=== PATIENT | male | born 1955 | race Caucasian/White ===

== ENCOUNTER 2024-07-16 09:36 | Outpatient (CLI) | payer MEDICARE, BC, SELFPAY | END 2024-07-16 09:37 | disposition home or self-care (01) | LOC: INJ CL 09:39 | PROVIDERS: PCP Family Medicine; Visit Provider Family Medicine | DX: M54.16 Radiculopathy, lumbar region (principal); M51.369 Other intervertebral disc degeneration, lumbar region without mention of lumbar back pain or lower extremity pain | CPT/HCPCS: 62323; J0702; Q9966 ==

== ENCOUNTER 2025-07-04 13:09 | Emergency (ER) | payer MEDICARE, BC, SELFPAY ==
--- OUTSIDE RECORDS SUMMARY | 2025-07-04 13:11 | XMS_ITS | Clinical Summary ---
Author Organization [facility] Address [address] [place] [id number] Care Team Providers Care Seismograph Operator Helper Name Role Phone Dominic Burger MD Primary Care Provider [phone] Allergies Active Allergy Reactions Criticality Noted Date Comments Penicillins 10/16/2007 paralysis and rigidity Medications celecoxib (CELEBREX) 200 mg capsuleIndication s:Lumbar radiculopathy Take 1 Capsule (200 mg) by mouth 2 times daily if needed for Pain. 60 Capsule 1 05/05/20 25 Active atorvastatin (LIPITOR) 20 mg tabletIndications :Hyperlipidemia, unspecified hyperlipidemia type TAKE ONE TABLET BY MOUTH ONE TIME DAILY AT BEDTIME 90 Tablet 1 06/17/20 25 Active levothyroxine (SYNTHROID) 75 mcg tabletIndications :Other specified hypothyroidism TAKE ONE TABLET BY MOUTH ONE TIME DAILY BEFORE BREAKFAST 90 Tablet 06/17/20 25 Active gabapentin (NEURONTIN) 300 mg capsuleIndication s:Lumbar radiculopathy Take 1 Capsule (300 mg) by mouth at bedtime. 90 Capsule 1 06/17/20 25 Active atorvastatin (LIPITOR) 20 mg tabletIndications :Hyperlipidemia, unspecified hyperlipidemia type Take 1 Tablet (20 mg) by mouth at bedtime. 90 Tablet 3 06/29/20 24 2024 Discontinued levothyroxine (SYNTHROID) 75 mcg tabletIndications :Other specified hypothyroidism Take 1 Tablet (75 mcg) by mouth before breakfast. 90 Tablet 3 06/29/20 24 2024 Discontinued gabapentin (NEURONTIN) 300 mg capsuleIndication s:Lumbar radiculopathy Take 1 Capsule (300 mg) by mouth at bedtime. 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 No chemotherapy or other treatment. Yearly PSAs are done at [facility] and followed by [facility]. Other specified hypothyroidism 10/27/2019 Overview (10/27/2019): This was diagnosis at the [facility] in 06/2019 with TSH of 9 and positive TPO antibodies. Thyroid ultrasound in 2018 showed no nodules. In 06/2019 he was started on Levothyroxine 50 micrograms daily and fatigue and cold intolerance improved. Pure hypercholesterolemia 10/16/2007 Special screening for malignant neoplasm of pros garcia 10/16/2007 Hypertrophy of prostate with out urinary obstruction and other lower urinary tract symptoms (LUTS) 10/16/2007 Encounters Date Type Department Care Team Description 07/01/2025 Travel 06/17/2025 8:20 AM CDT Office Visit [facility] [address] [place] [address] Josiah Tucker MD Musculoskeletal Problem (Follow up back pain) 06/17/2025 Travel 06/16/2025 Refill [facility] [address] [place] [address] Dominic Burger MD Refill Request (Atorvastatin, Levothyroxine) 06/12/2025 Travel from Last 3 Months Immunizations Immunization Administration Dates Next Due AMB Influenza, IIV4 PF (=>6 mos Flulaval,Fluzone Fluarix)(Flu Clinic Only) 07/11/2014 COVID-19 VACCINE SPIKEVAX (M ODERNA 50MCG/0.5ML) 12YO+ PFS 11/03/2024,06/29/2024 COVID-19 vaccine (CirroSecure-Bio NTech 30mcg/0.3mL) PF, MDV 08/13/2021 Influenza Virus, Unspecified 09/06/2013,07/10/20 10,08/03/2008 Influenza, IIV3 (Age >=3 years) 09/06/2013,07/10,08/03/2008 Influenza, IIV4 07/11/2014 Influenza, IIV4 (=>6mos) MDV 06/24/2016 TD, UNSPECIFIED 10/27/1997 Td (Age >=7 Years) 10/27/1997 Tdap 08/13/2021,04/10/2009 Zoster (Shingrix-RZV, recombinant) 01/01/2022, Family History Medical History Relation Name Comments Heart Disease Brother 1 Tamar 6 vessel CABG in 50s Alcoholism Brother 2 Devyn of alcohol ism at 67 Heart Disease Father CABG at 51; CH F Hyperlipidemia Father Other Father of old age at 97. He had CHF but was not felt to cause his Diabetes Mother 60s; of ki dney failure and other diabetes complications at 96 Heart Disease Mother Heart valve re placed Relation Name Status Comments Brother 1 Tamar Alive Brother 2 Devyn Brother 3 Joe Alive Father CHF Mother Sister Marleny Alive Social History Tobacco Use Types Packs/Day Years Used Date Smoking Tobacco: Former Cigarettes 0.3 15 0 09/22/1984 - 09/22/1999 Smokeless Tobacco: Never Tobacco Cessation:Counseling Given: Yes Alcohol Use Standard Drinks/Week Comments Yes 5 (1 standard drink = 0.6 oz pur e alcohol) occasional PHQ-2 Answer Date Recorded PHQ-2 TOTAL SCORE 0 06/29/2024 Social Connections Answer Date Recorded Do you often feel lonely or isolated from those around you? 0 06/29/2024 Alcohol Use Answer Date Recorded How often do you have a drink containing alcohol ? 3 11/03/2024 How many drinks containing a lcohol do you have on a typical day when you are drinking? 0 11/03/2024 How often do you have five or more drinks on one occasion? 1 11/03/2024 Financial Resource Strain Answer Date R ecorded Difficulty of Paying Living Expenses 3 06/29/2024 Difficulty of Paying Living Expenses Not on file 06/29/2024 Food Insecurity Answer Date Recorded Do you worry your food will run out before you are able to buy more? 1 06/29/2024 Transportation Needs Answer Date Record ed Does lack of transportation keep you from medica l appointments? 1 06/29/2024 Does lack of transportation keep you from work, meetings or getting things that you need? 1 06/29/2024 Housing Stability Answer Date Recorded What is your housing situation today? 1 06/29/2024 Utilities Answer Date Recorded Do you have trouble paying f or utilities (for example, heat, electricity, water, phone)? 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 on file Not on tyrone e Not on file Obstetrics History Last Filed Vital Signs Vital Sign Reading Time Taken Comments Blood Pressure 132/76 06/17/2025 8:25 AM CDT Pulse 58 06/17/2025 8:25 AM CDT Temperature 36.6 C (97.9 F) 06/17/2025 8:25 AM CDT Respiratory Rate 12 12/04/2021 10:34 AM CDT Oxygen Saturation 95% 06/17/2025 8:25 AM CDT Inhaled Oxygen Concentration - - Weight 90.1 kg (198 lb 9.6 oz) 06/17/2025 8:25 A M CDT Height 179.5 cm (5' 10.67) 06/17/2025 8:25 AM C DT Body Mass Index 27.96 06/17/2025 8:25 AM CDT Plan of Treatment Upcoming Encounters Date Type Department Care Team (Late st Contact Info) Description 07/05/2025 7:20 AM CDT Office Visit [facility] at [address] [facility] [place] [id number] Josiah Tucker MD [address] [place] [address] 09/05/2025 7:15 AM COLOR RECEIVER Orders Only [facility] [address] [place] [address] Alix Damon 09/06/2025 9:10 AM COLOR RECEIVER Office Visit [facility] [address] [place] [address] Dominic Burger MD [address] [place] [address] Health Maintenance Due Date Last Done Comments Pneumococcal series for age 50+ (1 of 1 - PCV) 2007 AAA screening age 65-74 2022 Influenza Vaccine (#1) 2025 6, 07/11/2014, 07/11/2014, Additional history exists Depression screening for age 12+ 06/29/2025 06/29/2024, 05/07/2023, 08/13/2021, Additional history exists Medicare Wellness for age 65+ 06/30/2025 06/29/2024 BMI (ht and wt on same day) for age 18+ 06/17/2026 06/17/2025, 01/31/2025, 06/29/2024, Additional history exists Lipids for age 45-75 06/29/2029 06/29/2024, 08/07/2023, 04/30/2023, Additional history exists Colonoscopy through age 75 08/05/202908/05 (Completed outside of [facility]), 08/15/2010 (Completed outside of [facility]), 12/15/2007 Tetanus booster 08/13/2031 08/13/2021, 03/23, 10/27/1997, Additional history exists RSV vaccine for adults or (1 - 1-dose 75+ series) 2032 Zoster (shingles) series for age 50+ Completed 01/01/2022, 08/13/2021 Hepatitis C screening for age 18-79 Completed 08/07/2023 COVID-19 vaccine series Completed 11/03/19, 06/29/2024, 07/24/2023, Additional history exists Hepatitis B series for 19+ Aged Out N o longer eligible based on patient's age to complete this topic Procedures Procedure Name Priority Date/Time Associated Diagnosis Comments LIPID PANEL W REFLEX MEASURED LDL Routine 06/29/2024 9:28 AM CDT Hyperlipidemia, unspecified hyperlipidemia type ANTI HCV Routine 08/07/2023 7:04 AM COLOR RECEIVER Need for hepatitis C screening test from Last 3 Months or Most Recently Relevant to Health Maintenance Results * LIPID PANEL W REFLEX MEASURED LDL (06/29/2024 9:28 AM CDT) CHOLESTEROL, TOTAL 155 <200 mg/dL [facility] HDL CHOLESTEROL 44 > OR = 40 mg/dL [facility] TRIGLYCERIDES 136 <150 mg/dL [facility] LDL-CHOLESTEROL 88 mg/dL (calc) [facility] Comment: Reference range: <100 Desirable range <100 mg/dL for primary prevention; <70 mg/dL for patients with CHD or diabetic patients with > or = 2 CHD risk factors. LDL-C is now calculated using the Reji calculation, which is a validated novel method providing better accuracy than the Friedewald equation in the estimation of LDL-C. Charly ORTEGA et al. KATYA. 2013;310(19): 9712-2884 (http://education.Infinite.ly/faq/MKN971) CHOL/HDLC RATIO 3.5 <5.0 (calc) [facility] NON HDL CHOLESTEROL 111 <130 mg/dL (calc) [facility] Comment: For patients with diabetes plus 1 major ASCVD risk factor, treating to a non-HDL-C goal of <100 mg/dL (LDL-C of <70 mg/dL) is considered a therapeutic option. Blood BLOOD SPECIMEN / Unknown 06/29/2024 9:28 AM CDT 06/29/2024 9:30 AM CDT Narrative [facility] - 06/30/2024 12:16 PM CDT FASTING:YES FASTING: YES us Dominic Burger MD CHEMISTRY Final Resu lt [facility] [address] [place] [address], [facility] [address] [place] [address] * ANTI HCV (08/07/2023 7:04 AM COLOR RECEIVER) HEPATITIS C ANTIBODY Non-Reacti ve Non-React karol 08/07/2023 2:33 PM COLOR RECEIVER [facility] Comment:Please note, per www .CDC.gov: If a patient is known to be at high risk of HCV infection, or is symptomatic, and the physician's suspicion of HCV infection is high, HCV RNA testing is often employed and is of diagnostic value, even after an initial negative anti-HCV test result. Blood BLOOD SPECIMEN / Unknown Venipuncture / Unknown 08/07/2023 7:04 AM COLOR RECEIVER 08/07/2023 7:04 AM COLOR RECEIVER us Dominic Burger MD SEND OUTS Final Resu lt [facility] [address] [place] [address], [place] from Last 3 Months or Most Recently Relevant to Health Maintenance Insurance [facility] MEDICARE PB ONLY MEDICARE PART B HB ONLY MEDICARE PART A HB ONLY Care Teams Seismograph Operator Helper Relationship Specialty Start Date End Date Dominic Burger [place] [address] PCP - General 09/29/07
[2025-07-04 13:23] VITALS: BP 164/91; PULSE 65; RESP 16; TEMP 36.5; O2SAT 97; BMI 27.9
--- NOTE | 2025-07-04 14:08 | ED.GENADULT ---
HPI - General Adult General Chief complaint: Unspecified Complaint, Adult Stated complaint: Fish hook R thumb Time Seen by Provider: 07/04/25 13:57 Source: patient Mode of arrival: ambulatory Limitations: no limitations History of Present Illness HPI narrative: 70-year-old male presents today with a fishhook to the right thumb. Tetanus shot is up-to-date. Related Data Home Medications ?Medication ?Instructions ?Recorded ?Confirmed atorvastatin 20 mg tablet 20 mg PO QPM 07/04/25 07/04/25 levothyroxine 75 mcg tablet 75 mcg PO QAM 07/04/25 07/04/25 Previous Rx's ?Medication ?Instructions ?Recorded cefadroxil 500 mg capsule 500 mg PO BID 7 days #14 caps 07/04/25 Allergies Allergy/AdvReac Type Severity Reaction Status Date / Time Penicillins Allergy Unknown Verified 07/04/25 13:27 Review of Systems Status of ROS: Reports: 6 or more systems reviewed and unremarkable except as noted in History and below Exam Narrative: Exam Narrative: Three prong fish hook, 1 hook imbedded into the pad of the thumb. Const: Vital Signs, click to edit/add: Vital Signs - 24 hr 07/04/25 13:23 Temperature 97.7 F Pulse Rate [Pulse Oximeter] 65 Respiratory Rate 16 Blood Pressure [Le ft Upper Arm] 164/91 H Pulse Oximetry 97 Oxygen Delivery Me thod Room Air Course Course ED Course: Area anesthetized with lidocaine, clean, assembler wire group used to cut the fishhook and remainder of the hook pulled out in its entirety. Vital Signs Vital signs: Initial Vital Signs Temperature 97.7 F 07/04/25 13:23 Temperature Source Temporal Artery Scan 07/04/25 13:23 Pulse Rate 65 07/04/25 13:23 Respiratory Rate 16 07/04/25 13:23 Blood Pressure 164/91 H 07/04/25 13:23 Blood Pressure Mean 115 H 07/04/25 13:23 Pulse Oximetry 97 07/04/25 13:23 Oxygen Delivery Method Room Air 07/04/25 13:23 Vital Signs Temperature 97.7 F 07/04/25 13:23 Pulse Rate 65 07/04/25 13:23 Respiratory Rate 16 07/04/25 13:23 Blood Pressure 164/91 H 07/04/25 13:23 Pulse Oximetry 97 07/04/25 13:23 Oxygen Delivery Method Room Air 07/04/25 13:23 Temperature 97.7 F 07/04/25 13:23 Pulse Rate 65 07/04/25 13:23 Respiratory Rate 16 07/04/25 13:23 Blood Pressure 164/91 H 07/04/25 13:23 Pulse Oximetry 97 07/04/25 13:23 Oxygen Delivery Method Room Air 07/04/25 13:23 Medical Decision Making MDM Narrative Medical decision making narrative: Iron Post imbedded in thumb. Pulled out without difficulty. Discharge Plan Discharge Clinical Impression: Fish hook entering through skin Patient Disposition: Home, Self-Care Condition: Improved Additional Instructions: Keep wound clean and dry. If finger tip turns red, start antibiotics. Prescriptions: New cefadroxil 500 mg capsule 500 mg PO BID 7 Days Qty: 14 0RF No Action atorvastatin 20 mg tablet 20 mg PO QPM levothyroxine 75 mcg tablet 75 mcg PO QAM Follow Up/Referrals: Dominic Burger MD [Primary Care Provider, Family Practice] Stand Alone [facility]: [facility] Inst[facility]
--- OUTSIDE RECORDS SUMMARY | 2025-07-04 14:09 | XMS_ITS | Clinical Summary ---
Author Organization [facility] Address [address] [place] [address] Care Team Providers Care Medical Sales Representative Name Role Phone Unavailable Primary Care Provider Unavailabl e Source Comments Patient records contain information from all sites at [facility]. For routine questions regarding patient records, call [phone] during business hours, M-F 8:00 AM - 5:00 PM Central Time. Record requests for emergency care only can be directed to [phone] at any time.[facility] Allergies Active Allergy Reactions Criticality Noted Date Comments Penicillin Other (see comments) 08/05/2017 patient may use cefazolin Medications * This document contains information received from the source organization and may not represent a complete record from that organization. atorvastatin (LIPITOR) 20 mg tablet Take 20 mg by mouth at bedtime. Active celecoxib (CeleBREX) 200 mg capsule Take 200 mg by mouth daily. SHORT TERM Active gabapentin (NEURONTIN) 300 mg capsule Take 300 mg by mouth daily. SHORT TERM Active levothyroxine (SYNTHROID, LEVOTHROID) 75 mcg tablet Take 75 mcg by mouth every morning before breakfast. Active Active Problems Problem Noted Date Diagnosed Date Fatigue 07/19/2019 Elevated Blood Pressure 07/19/2019 Primary Osteoarthritis Hip Bilateral 09/22/2012 Primary Malignant Neoplasm Of Prostate Hypothyroidism Hyperlipidemia Immunizations Immunization Administration Dates Next Due Influenza TIV (IM) 09/06/2013,07/10/2010, 008 Influenza, Injectable, Quadrivalent 06/24/2016 Influenza, Seasonal, Injectable 07/19/20 19(Deferred: Patient Refused),09/06/2013,08/03/2008 Td, (Adult) Unspecified 10/27/1997 Tdap 04/10/2009 influenza vaccine quad (FLUZONE/FLUARIX) (6 months and older)(PF) 07/11/2014 Family History Medical History Relation Name Comments Coronary artery disease Father july bedoya Hyperlipidemia (high cholesterol) Father july bedoya Diabetes Mother Yasmin bedoya Relation Name Status Comments Father july bedoya Mother Yasmin bedoya Social History Tobacco Use Types Packs/Day Years Used Date Smoking Tobacco: Former Cigarettes Q uit: 09/22/1999 Smokeless Tobacco: Never Tobacco Cessation:Counseling Given: Not Answered Alcohol Use Standard Drinks/Week Comments Yes 4 (1 standard drink = 0.6 oz pur e alcohol) [facility] Utilities Answer Date Recorded In the past 12 months has e [employer], gas, oil, or water [employer] threatened to shut off services in your home? No 03/03/2024 Humiliation, Afraid, Rape, and Kick questionnair e Answer Date Recorded Within the last year, have y ou been afraid of your partner or ex-partner? No 11/12/2021 Within the last year, have y ou been humiliated or emotionally abused in other ways by your partner or ex-partner? No Within the last year, have y ou been kicked, hit, slapped, or otherwise physically hurt by your partner or ex-partner? No 11/12/2021 Within the last year, have y ou been raped or forced to have any kind of sexual activity by your partner or ex-partner? No 11/12/2021 Hunger Vital Sign Answer Date Recorded Within the past 12 months, y ou worried that your food would run out before you got the money to buy more. Never true 03/03/20 24 Within the past 12 months, t he food you bought just didn't last and you didn't have money to get more. Never true 03/03/2024 PRAPARE - Transportation Answer Date Re corded In the past 12 months, has l ack of transportation kept you from medical appointments or from getting medications? No 02/20 In the past 12 months, has l ack of transportation kept you from meetings, work, or from getting things needed for daily living? No 03/03/2024 Housing Stability Answer Date Recorded What is your living situation today? I have a [facility] place to live 03/03/2024 Education Answer Date Recorded What is the highest level of school you have completed or the highest degree you have received? Bachelor's degree (e.g., BA, AB, BS) 07/14/2019 Sex and Gender Information Value Date Recorded Sex Assigned at Male 11/12/2021 4:38 PM STRAWHAT BLOCKING OPERATOR Legal Sex Male 2:30 PM STRAWHAT BLOCKING OPERATOR Gender Identity Male 02/23/2018 8:03 AM CDT Sexual Orientation Straight 02/23/2018 8: 03 AM CDT Last Filed Vital Signs Vital Sign Reading Time Taken Comments Blood Pressure 130/77 08/05/2019 9:00 AM STRAWHAT BLOCKING OPERATOR Pulse 66 08/05/2019 9:00 AM STRAWHAT BLOCKING OPERATOR Temperature 36.6 C (97.9 F) 08/05/2019 8:49 AM STRAWHAT BLOCKING OPERATOR Respiratory Rate 15 08/05/2019 9:00 AM STRAWHAT BLOCKING OPERATOR Oxygen Saturation 97% 08/05/2019 9:00 AM STRAWHAT BLOCKING OPERATOR Inhaled Oxygen Concentration - - Weight 91.5 kg (201 lb 11.5 oz) 08/05/2019 7:37 AM STRAWHAT BLOCKING OPERATOR Height 178.4 cm (5' 10.24) 08/05/2019 7:[address] Body Mass Index 28.75 08/05/2019 7:37 AM STRAWHAT BLOCKING OPERATOR Plan of Treatment Health Maintenance Due Date Last Done Comments CT Colonography 1955 Cologuard 1955 Pneumococcal vaccine (50+ years) (1 of 1 - PCV) 2007 Colonoscopy 08/05/2024 08/05/2019, 09/2006 (Performed elsewhere) Colorectal Cancer Surveillance 08/05/2024 Thyroid Stimulating Hormone (TSH) test for thyroid function 08/07/2024 08/07/2023, 04/30/2023, 12/04/2021, Additional history exists Depression Screening (Annual PHQ-2) 09/22/2024 Fall Risk Screen (Annual) 09/22/2024 COVID-19 Vaccine ( season) 2025 11/03/2024, 06/29/2024, 07/24/2023, Additional history exists Influenza Vaccine (#1) 2025 6, 07/11/2014, 09/06/2013, Additional history exists Fasting Glucose for Diabetes Screening 06/29/2027 06/29/2024, 08/07/2023, 12/04/2021, Additional history exists Lipid (Cholesterol) Screening 08/07/2028 08/07/2023, 04/30/2023, 12/04/2021, Additional history exists DTaP,Tdap,and Td Vaccines (3 - Td or Tdap) 08/13/2031 08/13/2021, 04/10/2009, 10/27/1997 Hepatitis C Screening Completed 07/20/2019 Abdominal Aortic Aneurysm (AAA) Screen Completed 07/23/2019 Zoster Vaccines Completed 01/01/2022, 08/13/2021 IPV Vaccines Aged Out No longer eligi ble based on patient's age to complete this topic Medical Devices Implanted Type Area Blue Crabber Device Identifier Shelf Expiration Date Model / Serial / Lot Conversions - Default Historical Implant Device Implanted:2016 (Quantity not on file) Hardware e.g. pins/screws /rods Right: Wrist Description:Body Location - Wrist R. Device Status Text - Hardware. Screw Osteolock 26mm - Stephens [id number] Implanted:Qty: 1 on 08/21/2017 Hardware e.g. pins/screws /rods Irish Description:Device Manufactu rer - Geary Vanesa.. Device Status Text - [id number]. Screw Osteolock 20mm - Stephens [id number] Implanted:Qty: 1 on 08/21/2017 Hardware e.g. pins/screws /rods Geary Description:Device Manufactu rer - Geary Vanesa.. Device Status Text - [id number]. How- Shell Acetab Tri Hemispherical 56mm - Stephens [id number] Implanted:Qty: 1 on 08/21/2017 Hip Implant Other/Legacy - See Implant Description Geary Description:Device Manufactu rer - Irish Vanesa.. Body Location - Other. Left. Device Status Text - [id number] [id number]. Biolox-Delta Head C-Taper 36mm -5 - Stephens [id number] Implanted:Qty: 1 on 08/21/2017 Hip Implant Other/Legacy - See Implant Description Irish Description:Device Manufactu rer - Irish Vanesa.. Body Location - Other. Left. Device Status Text - [id number] [id number]. Ost Insert Trid X 3 Ply 0 Deg 36mm - Stephens [id number] Implanted:Qty: 1 on 08/21/2017 Hip Implant Other/Legacy - See Implant Description Irish Description:Device Manufactu rer - Geary Vanesa.. Body Location - Other. Left. Device Status Text - [id number] [id number]. Hip Stem Secur-Fit Max 10 35 - Stephens [id number] Implanted:Qty: 1 on 08/21/2017 Hip Implant Other/Legacy - See Implant Description Irish Description:Device Manufactu rer - Irish Vanesa.. Body Location - Other. Left. Device Status Text - [id number] [id number]. How- Shell Acetab Tri Hemispherical 56mm - Stephens [id number] Implanted:Qty: 1 on 10/28/2017 Hip Implant Other/Legacy - See Implant Description Geary Description:Device Manufactu rer - Geary Vanesa.. Body Location - Other. Right. Device Status Text - [id number] [id number]. Biolox-Delta Head C-Taper 36mm 0 - Stephens [id number] Implanted:Qty: 1 on 10/28/2017 Hip Implant Other/Legacy - See Implant Description Irish Description:Device Manufactu rer - Geary Vanesa.. Body Location - Other. Right. Device Status Text - [id number] [id number]. Hip Stem Secur-Fit Max 10 35 - Stephens [id number] Implanted:Qty: 1 on 10/28/2017 Hip Implant Other/Legacy - See Implant Description Geary Description:Device Manufactu rer - Geary Vanesa.. Body Location - Other. Right. Device Status Text - [id number] [id number]. Ost Insert Trid X 3 Ply 0 Deg 36mm - Stephens [id number] Implanted:Qty: 1 on 10/28/2017 Hip Implant Other/Legacy - See Implant Description Irish Description:Device Manufactu rer - Geary Vanesa.. Body Location - Other. Right. Device Status Text - HIP [id number]. Procedures Procedure Name Priority Date/Time Associated Diagnosis Comments COLONOSCOPY Routine 08/05/2019 7:57 AM STRAWHAT BLOCKING OPERATOR General Medical Examination Adult US AORTA RAD - Routine (most inpatients and all outpatients) 07/23/2019 8:28 AM CDT General Medical Examination Adult COMPREHENSIVE METABOLIC PANEL, S/P Routine 07/20/2019 7:23 AM CDT General Medical Examination Adult HCV AB SCRN W/REFLEX TO HCV PCR, S Routine 07/20/2019 7:23 AM CDT General Medical Examination Adult LIPID PANEL, S Routine 07/20/2019 7:23 AM CDT General Medical Examination Adult THYROID FUNCTION CASCADE, S Routine 07/20/2019 7:23 AM CDT General Medical Examination Adult from Last 3 Months or Most Recently Relevant to Health Maintenance Results * Colonoscopy (08/05/2019 7:57 AM STRAWHAT BLOCKING OPERATOR) Anatomical Region Laterality Modality Other 08/05/2019 7:57 AM STRAWHAT BLOCKING OPERATOR Impressions 08/05/2019 8:59 AM STRAWHAT BLOCKING OPERATOR Post-op Diagnoses: - One 3 mm polyp in the descending colon, removed piecemeal using a cold biopsy forceps. Resected and retrieved. - Two 3 to 5 mm polyps at the recto-sigmoid colon, removed with a cold snare. Resected and retrieved. - The examination was otherwise normal on direct and retroflexion views. Narrative 08/05/2019 8:59 AM STRAWHAT BLOCKING OPERATOR [facility] GI Patient Name: Romeo Bedoya Date of : 1955 Age: 64 Gender: Male Procedure Date: 08/05/2019 Procedure: Colonoscopy Providers: Jorge A Trevino MD, Amilcar Borden MD (Fellow) Referring Provider: Devyn Valle Pre-op Diagnoses: High risk colon cancer surveillance: Personal history of colonic polyps Recommendation: - Await pathology results. - Return to referring physician as previously scheduled. Findings: A 3 mm polyp was found in the descending colon. The polyp was sessile. The polyp was removed with a piecemeal technique using a cold biopsy forceps. Resection and retrieval were complete. Two sessile polyps were found in the recto-sigmoid colon. The polyps were 3 to 5 mm in size. These polyps were removed with a cold snare. Resection and retrieval were complete. The exam was otherwise without abnormality on direct and retroflexion views. Procedural Details: The patient was seen, evaluated, history reviewed, airway and heart-lung exams were performed by licensed provider and were satisfactory for planned level of sedation care. The risks, benefits and alternatives for the procedure and sedation were discussed and informed consent was obtained. A procedural pause was conducted in the presence of assisting personnel to verify the correct patient identity and procedure to be performed. Throughout the procedure, the patient's blood pressure, pulse, and oxygen saturations were monitored continuously. The Colonoscope was introduced under direct vision through the anus and advanced to the cecum, identified by appendiceal orifice and ileocecal valve. The colonoscopy was performed without difficulty. The patient tolerated the procedure well. The quality of the bowel preparation was good. The quality of the bowel preparation was evaluated using the BBPS ([place] Bowel Preparation Scale) with scores of: Right Colon = 3, Transverse Colon = 3 and Left Colon = 3 (entire mucosa seen well with no residual staining, small fragments of stool or opaque liquid). The total BBPS score equals 9. Complications: No immediate complications. Estimated blood loss: Minimal. Sedation: Moderate (conscious) sedation was administered by the endoscopy nurse and supervised by the endoscopist. The patient's oxygen saturation, heart rate, blood pressure and response to care were monitored. Total physician intraservice time was 34 minutes. Attending Participation: I was present and participated during the entire procedure, including non-palomares portions. Jorge A Trevino MD 08/05/2019 8:59:14 AM This report has been signed electronically. Number of Addenda: 0 us Devyn Valle M.D. GI PROCEDURE ORDERABLES F inal Result * US Aorta (07/23/2019 8:28 AM CDT) Anatomical Region Laterality Modality Abdomen, Pelvis, Ultrasound RST LOS, Ultrasound ARZ LOS, Ultrasound FLA LOS N/A Ultrasound 07/23/2019 8:32 AM CDT Impressions 07/23/2019 9:02 AM CDT The abdominal aorta and bilateral common iliac arteries are normal in caliber. Narrative 07/23/2019 9:02 AM CDT EXAM: US AORTA COMPARISON: None. FINDINGS: Ultrasound examination of the abdominal aorta demonstrates no evidence for abdominal aortic aneurysm. The abdominal aorta measures 2.9 cm in diameter proximally and 1.9 cm distally. Both common iliac arteries are normal in caliber, measuring 1.5 cm in diameter on the right and 1.4 cm in diameter on the left. Aorta: AP - 2.0 cm Aorta: Trans - 1.9 cm Right NAT: AP - 1.5 cm Right NAT: Trans - 1.5 cm Left NAT: AP - 1.5 cm Left NAT: Trans - 1.4 cm Procedure Note Kasey Anglin M.D. - 07/23/2019 EXAM: US AORTA COMPARISON: None. FINDINGS: Ultrasound examination of the abdominal aorta demonstrates no evidencefor abdominal aortic aneurysm. The abdominal aorta measures 2.9 cm indiameter proximally and 1.9 cm distally. Both common iliac arteries are normal in caliber, measuring 1.5 cm in diameter on the right and 1.4 cm in diameteron the left. Aorta: AP - 2.0 cm Aorta: Trans - 1.9 cm Right NAT: AP - 1.5 cm Right NAT: Trans - 1.5 cm Left NAT: AP - 1.5 cm Left NAT: Trans - 1.4 cm IMPRESSION: The abdominal aorta and bilateral common iliac arteries are normal in caliber. us Devyn Valle M.D. IMG US PROCEDURES Final R esult * (ABNORMAL) Lipid Panel (07/20/2019 7:23 AM CDT) [facility] Cholesterol, Total 229(H) mg/dL 2018 9:03 AM CDT DTL Comment: ----REFERENCE VALUE---- Desirable: < 200 Borderline high: 200 - 239 High: > or = 240 Triglycerides 221(H) mg/dL 07/20/2019 9:03 AM CDT DTL Comment: ----REFERENCE VALUE---- Normal: <150 Borderline high: 150-199 High: 200-499 Very high: > or =500 Cholesterol, HDL, S 36(L) >=40 mg/dL 07/20/2019 9:03 AM CDT DTL Calculated LDL 149(H) mg/dL 07/20/2019 9:03 AM CDT DTL Comment: ----REFERENCE VALUE---- Desirable: <100 Above Desirable: 100-129 Borderline high: 130-159 High: 160-189 Very high: > or =190 Cholesterol, Non-HDL, Calculated 193(H) mg/dL 07/20/2019 9:03 AM CDT [facility] Comment: ----REFERENCE VALUE---- Desirable: <130 Above Desirable: 130-159 Borderline high: 160-189 High: 190-219 Very high: > or =220 Blood (Blood, Venous) 07/20/2019 7:23 AM CDT 07/20/2019 7:43 AM CDT Devyn Valle M.D. LAB BLOOD ADD-ON Final Re sult Performing Organization Address City/[facility]/ZIP Co de Phone Number [facility] [address] [place] [address], [facility] [address] [place] [address] * (ABNORMAL) Thyroid Function [place] (07/20/2019 7:23 AM CDT) Pathologist [facility] TSH, Sensitive 9.3(H) 0.3 - 4.2 mIU/L 07/20/2019 9:03 AM CDT [facility] Blood (Blood, Venous) 07/20/2019 7:23 AM CDT 07/20/2019 7:43 AM CDT Devyn Valle M.D. LAB BLOOD ADD-ON Final Re sult Performing Organization Address City/[facility]/ZIP Co de Phone Number [facility] [address] [place] [address], [facility] [address] [place] [address] * HCV Ab Scrn w/Reflex to HCV PCR, Serum (07/20/2019 7:23 AM CDT) Pathologist [facility] HCV Ab Screen, S Negative Negative 07/20/2019 12:[address] [facility] Comment:Ouukda-gi-cjelez rat io is <1.00. Blood (Blood, Venous) 07/20/2019 7:23 AM CDT 07/20/2019 10:34 AM CDT us Devyn Valle M.D. LAB MICROBIOLOGY - BLOOD ORDERABLES Final Result [facility] [address] [place] [address] [facility] Dept. of Laboratory Medicine and Pathology [address] [place] [address] * Comprehensive Metabolic Panel (07/20/2019 7:23 AM CDT) Potassium, S 5.1 3.6 - 5.2 mmol/L 07/20/2019 9:03 AM CDT DTL Sodium, S 142 135 - 145 mmol/L 07/20/2019 9:03 AM CDT DTL Chloride, S 104 98 - 107 mmol/L 07/20/2019 9:03 AM CDT DTL Bicarbonate, S 25 22 - 29 mmol/L 07/20/2019 9:03 AM CDT DTL Anion Gap 13 7 - 15 07/20/2019 9:03 AM CDT DTL BUN (Blood Urea Nitrogen), S 16 8 - 24 mg/dL 07/20/2019 9:03 AM CDT DTL Creatinine 1.09 0.74 - 1.35 mg/dL 07/20/2019 9:03 AM CDT DTL eGFR-Non Black/ 72 >=60 mL/min/BS A 07/20/2019 9:03 AM CDT DTL Comment: ----ADDITIONAL INFORMATION---- Estimated GFR calculated using the 2009 CKD_EPI creatinine equation. eGFR-Black/ 84 >=60 mL/min/BS A 07/20/2019 9:03 AM CDT DTL Comment: ----ADDITIONAL INFORMATION---- Estimated GFR calculated using the 2009 CKD_EPI creatinine equation. Calcium, Total, S 9.8 8.8 - 10.2 mg/dL 07/20/2019 9:03 AM CDT DTL Glucose, S 112 70 - 140 mg/dL 07/20/2019 9:03 AM CDT DTL Protein, Total, S 7.1 6.3 - 7.9 g/dL 07/20/2019 9:03 AM CDT DTL Albumin, S 4.5 3.5 - 5.0 g/dL 07/20/2019 9:03 AM CDT DTL Aspartate Aminotransferase (AST), S 22 8 - 48 U/L 07/20/2019 9:03 AM CDT DTL Alkaline Phosphatase, S 67 40 - 129 U/L 07/20/2019 9:03 AM CDT DTL Alanine Aminotransferase (ALT), S 29 7 - 55 U/L 07/20/2019 9:03 AM CDT DTL Bilirubin, Total, S 0.4 <=1.2 mg/dL 07/20/2019 9:03 AM CDT DTL Blood (Blood, Venous) 07/20/2019 7:23 AM CDT 07/20/2019 7:43 AM CDT Devyn Valle M.D. LAB BLOOD ADD-ON Final Re sult [facility] [address] [place] [address], [facility] DTL [facility] [address] [place] [address] from Last 3 Months or Most Recently Relevant to Health Maintenance Insurance [facility] MEDICARE
== END 2025-07-04 14:15 | disposition home or self-care (01) ==
PROVIDERS: Emergency Provider Family Medicine; PCP Family Medicine
DX: S60.351A Superficial foreign body of right thumb, initial encounter (principal); W45.3XXA Fishing hook entering through skin, initial encounter
CPT/HCPCS: 99283; 99284

== ENCOUNTER 2025-07-05 06:53 | Outpatient (CLI) | payer MEDICARE, BC, SELFPAY | END 2025-07-05 06:54 | disposition home or self-care (01) | LOC: INJ CL 06:56 | PROVIDERS: PCP Family Medicine; Visit Provider Family Medicine | DX: M54.16 Radiculopathy, lumbar region (principal); M51.369 Other intervertebral disc degeneration, lumbar region without mention of lumbar back pain or lower extremity pain | CPT/HCPCS: 62323; J0702; Q9966 ==